=== PATIENT | female | born 1945 | race Caucasian/White ===

== ENCOUNTER 2017-05-19 09:49 | Observation (INO) | payer OTHER, MEDICARE ==
[2017-05-19 09:56] VITALS: BMI 22.6
[2017-05-19] MEDS ORDERED: PANTOPRAZOLE SODIUM 40 MG in SODIUM CHLORIDE 100 ML IVPB ONE (10:14)
[2017-05-19] MEDS ORDERED: PANTOPRAZOLE SODIUM 40 MG VIAL ONE (10:18)
[2017-05-19 10:36] LABS: BASO % 0.9 % (0-2.0); EOS % 1.1 % (0-4.5); HEMATOCRIT 39.8 % (32.4-45.2); HEMOGLOBIN 13.4 GM/dL (10.7-15.3); LYMPH % 34.4 % (8-40); MCH 28.7 pg (25.7-33.7); MCHC 33.6 g/dl (32.0-36.0); MEAN CELL VOLUME 85.4 fl (80-96); MEAN PLT VOLUME 8.3 fl (7.5-11.1); MONO % 6.4 % (3.8-10.2); NEUT % 57.2 % (42.8-82.8); PLATELET COUNT 196 K/MM3 (134-434); RBC 4.67 M/mm3 (3.60-5.2); RDW 14.2 % (11.6-15.6); WHITE BLOOD COUNT 5.2 K/mm3 (4.0-10.0)
[2017-05-19 10:38] LABS: INR 1.02 (0.82-1.09); PROTHROMBIN TIME (PATIENT) 11.5 SEC (9.98-11.88)
[2017-05-19] MEDS ORDERED: NITROGLYCERIN SUBLINGUAL 1/150 0.4 MG TAB SL ONE (10:39)
[2017-05-19 10:54] LABS: ALBUMIN 3.9 g/dl (3.4-5.0); ANION GAP 9 (8-16); BILIRUBIN,TOTAL 0.6 mg/dL (0.2-1.0); BLOOD UREA NITROGEN 17 mg/dL (7-18); CALCIUM 8.2 mg/dL (8.5-10.1); CHLORIDE 109 mmol/L (98-107); CO2 24 mmol/L (21-32); CREATININE 0.8 mg/dL (0.55-1.02); GLUCOSE,RANDOM 127 mg/dL (74-106); MAGNESIUM 2.5 mg/dL (1.8-2.4); POTASSIUM 4.1 mmol/L (3.5-5.1); SGOT/AST 20 U/L (15-37); SGPT/ALT 19 U/L (12-78); SODIUM 142 mmol/L (136-145); TOT PROT 7.4 g/dl (6.4-8.2)
[2017-05-19 10:56] LABS: ALK PHOS 107 U/L (45-117)
--- NOTE | 2017-05-19 12:21 | PDOC ---
History of Present Illness - General Chief Complaint: Chest Pain Stated Complaint: CHEST PAIN Time Seen by Provider: 05/19/17 10:07 History Source: Patient Exam Limitations: No Limitations - History of Present Illness Initial Comments: 05/19/17 11:21 71-year-old female presents the ED with midsternal/left substernal chest pressure that began last night consistently and now with intermittent left arm aching sensation since this morning. Patient states has had indigestion describing a burning sensation to epigastric region for the past 10 days with moderate relief using Maalox and Nexium. Patient states arrived from [place] this week and denies any increased exertion since arrival. Patient states has no cardiac history but did have palpitations abruptly 5 years ago where she had a stress echo that was done which was negative. Patient states has history of high cholesterol and GERD. Patient states strong familial cardiac history on her mother's side including her mother, her brother and just recently her son who of sudden cardiac arrest at age 43. Patient denies smoking or drug use. Patient denies shortness of breath, fever, chills, cough leg pain, edema, palpitations, or dizziness. Presenting Symptoms: Chest Pain Timing/Duration: reports: constant Severity/Quality: reports: moderate, pressure Location: reports: substernal Chest Pain Radiation: reports: no radiation Activities at Onset: reports: none Prior Chest Pain/Cardiac Workup: reports: Echocardiography ( 5 years ago) Nitro Today/Relief: Yes: 0.4 mg x 1, provided by ED Aspirin Received prior to arrival (Core Measure): Yes: 325 mg x 1, provided at home Beta Alessandro given by EMS (Core Measure): No Beta Alessandro taken at Home (Core Measure): No Beta Alessandro indicated at this time? (Core Measure): No Associated Symptoms: Yes: Chest Pain/pressure, Heartburn Past History - Travel Traveled outside of the country in the last 30 days: No Close contact w/someone who was outside of country & ill: No - Past Medical History Allergies/Adverse Reactions: Allergies Allergy/AdvReac Type Severity Reaction Status Date / Time alendronate sodium Allergy Severe Hives Verified 05/19/17 09:52 [From Fosamax] ciprofloxacin [From Cipro] Allergy Severe chest pain Verified 05/19/17 09:52 erythromycin base Allergy Severe Hives Verified 05/19/17 09:52 Sulfa (Sulfonamide Allergy Severe Hives Verified 05/19/17 09:52 Antibiotics) Home Medications: Ambulatory Orders Aspirin 81 mg PO HS 05/19/17 Atorvastatin Ca [Lipitor] 20 mg PO HS 05/19/17 Esomeprazole Magnesium [Nexium 24Hr] 40 mg PO HS 05/19/17 Raloxifene HCl [Evista] 60 mg PO HS 05/19/17 COPD: No GI Disorders: Yes (gerd) Hypercholesterolemia: Yes - Immunization History Immunization Up to Date: Yes - Suicide/Smoking/Psychosocial Hx Smoking History: Never smoked Substance Use Type: None Patient Lives Alone: No Lives with/in: spouse/SO Review of Systems - Review of Systems Able to Perform ROS?: Yes Constitutional: No: Symptoms Reported HEENTM: No: Symptoms Reported Respiratory: No: Symptoms reported Cardiac (ROS): Yes: Other (chest pressure) ABD/GI: Yes: Indigestion : No: Symptoms Reported Musculoskeletal: No: Symptoms Reported Integumentary: No: Symptoms Reported Neurological: No: Symptoms reported *Physical Exam - Vital Signs Last Vital Signs Temp Pulse Resp BP Pulse Ox 98.1 F 68 18 137/77 99 05/19/17 09:52 05/19/17 12:11 05/19/17 12:11 05/19/17 12:11 05/19/17 12:11 - Physical Exam General Appearance: Yes: Nourished, Appropriately Dressed. No: Apparent Distress HEENT: negative: Pale Conjunctivae Neck: positive: Normal Thyroid, Supple Respiratory/Chest: positive: Lungs Clear, Normal Breath Sounds. negative: Respiratory Distress, Accessory Muscle Use Cardiovascular: positive: Regular Rhythm, Tachycardia. negative: Murmur Gastrointestinal/Abdominal: positive: Normal Bowel Sounds, Soft. negative: Tenderness Extremity: negative: Pedal Edema Integumentary: positive: Normal Color, Warm, Moist Neurologic: positive: Motor Strength 5/5 (ambulatory) Heart Score/ECG Review - P and DC Atrial Enlargement: Left (rate 108. Sinus tachycardia. No ST elevation or depression noted) ED Treatment Course - LABORATORY CBC & Chemistry Diagram: 05/19/17 10:15 05/19/17 10:15 - ADDITIONAL ORDERS Additional order review: Laboratory Results 05/19/17 05/19/17 05/19/17 10:15 10:15 10:15 PT with INR 11.50 INR 1.02 D-Dimer 423 Sodium 142 Potassium 4.1 Chloride 109 H Carbon Dioxide 24 Anion Gap 9 BUN 17 Creatinine 0.8 Creat Clearance w eGFR > 60 Random Glucose 127 H Calcium 8.2 L Magnesium 2.5 H Total Bilirubin 0.6 AST 20 ALT 19 Alkaline Phosphatase 107 Creatine Kinase 88 Troponin I < 0.02 Total Protein 7.4 Albumin 3.9 05/19/17 10:15 RBC 4.67 MCV 85.4 MCHC 33.6 RDW 14.2 MPV 8.3 Neutrophils % 57.2 Lymphocytes % 34.4 Monocytes % 6.4 Eosinophils % 1.1 Basophils % 0.9 - RADIOLOGY Radiology Studies Ordered: Category Date Time Status CHEST X-RAY PORTABLE* [RAD] Stat Radiology 05/19/17 10:13 Completed - Medications Given in the ED: ED Medications Discontinued Medications Generic Name Dose Route Start Last Admin Trade Name Freq PRN Reason Stop Dose Admin Pantoprazole Sodium 40 mg/ 100 mls @ 200 mls/hr 05/19/17 10:14 05/19/17 10:26 Sodium Chloride IVPB 05/19/17 10:43 200 mls/hr ONCE ONE Administration Nitroglycerin 0.4 mg 05/19/17 10:39 05/19/17 10:25 Nitrostat - SL 05/19/17 10:40 0.4 mg ONCE ONE Administration Medical Decision Making - Medical Decision Making 05/19/17 11:24 Patient here with constant chest pressure to her midsternal and left sternal border since yesterday now show sheeted with intermittent left arm aching discomfort. Patient arrives sinus tachycardia complaining of chest pressure so was given 1 nitroglycerin sublingual. Differential diagnoses to include ACS, angina, esophageal spasm and PE. Patient also ordered for IV Protonix. 05/19/17 12:28 Chest x-ray shows no evidence of active pulmonary disease. Microblog was sent to hospitalist and will consult Dr. Emmanuel boat carpenter. echo ordered Laboratory Tests 05/19/17 05/19/17 05/19/17 10:15 10:15 10:15 WBC 5.2 Hgb 13.4 Hct 39.8 Plt Count 196 Neutrophils % 57.2 D-Dimer 423 Sodium 142 Potassium 4.1 Chloride 109 H Carbon Dioxide 24 Anion Gap 9 BUN 17 Creatinine 0.8 Random Glucose 127 H Calcium 8.2 L Magnesium 2.5 H Total Bilirubin 0.6 AST 20 ALT 19 Creatine Kinase 88 Troponin I < 0.02 05/19/17 12:35 Case discussed with hospitalist and requesting TSH. *DC/Admit/Observation/Transfer Diagnosis at time of Disposition: Chest pressure - Discharge Dispostion Admit: Yes - Referrals - Patient Instructions - Post Discharge Activity
--- NOTE | 2017-05-19 12:24 | EKG ---
Test Reason : Blood Pressure : / mmHG Vent. Rate : 108 BPM Atrial Rate : 108 BPM P-R Int : 140 ms QRS Dur : 094 ms QT Int : 360 ms P-R-T Axes : 046 034 058 degrees QTc Int : 482 ms SINUS TACHYCARDIA POSSIBLE LEFT ATRIAL ENLARGEMENT INCOMPLETE RIGHT BUNDLE BRANCH BLOCK BORDERLINE ECG WHEN COMPARED WITH ECG OF 26-SEP-2010 03:21, NO SIGNIFICANT CHANGE WAS FOUND Confirmed by SEBASTIEN GUTIÉRREZ, MICHELLE ([id number]) on 05/19/2017 12:23:44 PM Referred By: Confirmed By:MICHELLE CROWE MD
--- NOTE | 2017-05-19 14:55 | CON.CARD ---
Cardiology Consult (text) - Consultation Consultation Note: CC: CP 71 yo with pmhx of HL and gerd who p/w cp. + intermittent sternal chest pressure that began last night . this morning pain became associated with upper left arm aching. Was not relieved by antacids. No associated sx's. + intermittent palps (sensation of skipped or irregular heart beat) lasting 5- 10 seconds. No associated sx's. Occurring intermittently over the past week. No hx of syncope or presyncope. preceded by 10 days of worsened gerd sx's (burning sensation), but also with intermittent chest pressure similar to presenting discomfort (non-exertional). Flew back from [place] two days ago, carried her own luggage, no sx's. At baseline is active, exercises regularly with a class. Last did so on tuesday -- > no reproduction of chest pressure. In ER received SL NTG x 1 and IV protonix --> no change in sx's. Took asa 325 mg at home. Currently only mild discomfort, reproducible to palpation. no sob, orthopnea, pnd, le edema, claudication, transient neurologic sx's or dizziness. denies fever, chills, sweats, cough, congestion, n/v/d, rash, visual changes, leg pain, pmhx/pshx: per hpi social hx: former smoker, no etoh or illicits fam hx: son of sudden at age 43 (autopsy did not show infarction, but showed he had an enlarged heart with hypertrophy). mother with cabg in her 70's and brother with cabg at 50. ros: per hpi Ambulatory Orders Aspirin 81 mg PO HS 05/19/17 Atorvastatin Ca [Lipitor] 20 mg PO HS 05/19/17 Esomeprazole Magnesium [Nexium 24Hr] 40 mg PO HS 05/19/17 Raloxifene HCl [Evista] 60 mg PO HS 05/19/17 Vital Signs - 24 hr 05/19/17 05/19/17 05/19/17 09:52 10:29 10:45 Temperature 98.1 F Pulse Rate 100 H Pulse Rate [ 101 H 84 Left Apical] Respiratory 18 20 20 Rate Blood Pressure 163/99 Blood Pressure 178/75 112/57 [Right Arm] O2 Sat by Pulse 97 98 99 Oximetry (%) 05/19/17 05/19/1705/19/18 11:20 12:11 13:01 Temperature Pulse Rate Pulse Rate [ 73 68 68 Left Apical] Respiratory 20 18 20 Rate Blood Pressure Blood Pressure 124/59 137/77 147/66 [Right Arm] O2 Sat by Pulse 100 99 99 Oximetry (%) 05/19/17 14:08 Temperature Pulse Rate Pulse Rate [ Left Apical] Respiratory Rate Blood Pressure Blood Pressure [Right Arm] O2 Sat by Pulse 99 Oximetry (%) Intake & Output 05/17/17 05/18/17 05/19/17 05/20/17 07:59 07:59 07:59 07:59 Weight 140 lb nad, calm jvd flat, neck supple ctab, nl effort rrr nl s1, s2 no mrg + bs soft nt nd, no hsm ext without e/c/c + dp/pt, no carotid bruits no jaundice, diaphoresis aaox3 CBC, BMP 05/19/17 10:15 05/19/17 10:15 Laboratory Tests 05/19/17 05/19/17 05/19/17 10:15 10:15 10:15 D-Dimer 423 Magnesium 2.5 H Total Bilirubin 0.6 AST 20 ALT 19 Alkaline Phosphatase 107 Creatine Kinase 88 Troponin I < 0.02 TSH 1.33 ekg: sinus tachycardia, 108 bpm. no ischemic changes. tele: sr echo 05/2017: nl lv/rv size/fn. nl valves. cxr: no acute pathology assessment/plan 71 yo with pmhx of HL and gerd who p/w cp. cp/family hx of scd and premature cad - ce's neg x 1. con't monica. EKG without acute ischemic changes. Echo wnl - pain is atypical and reproducible to palpation. However, given family hx and risk factors will pursue further cardiac evaluation. + family hx of scd/ premature cad --> con't tele monitoring. Exercise stress test tomorrow. - start daily baby asa. con't statin. - mgm't of gerd per pmd. d-dimer neg. palpitations - tele monitoring htn? - htn on arrival, unclear if isolated in setting of pain, etc.. monitor for recurrence. hl - con't home statin
--- NOTE | 2017-05-19 15:28 | HP ---
Admitting History and Physical - Primary Care Physician PCP: Gustavo Brito - Admission Chief Complaint: chest pressure History of Present Illness: This is a 71 year old female with pmhx of GERD who presented to the ED with 2 days of intermittent chest pressure and worsening overnight into this morning with radiation to her RUE. PT states for the past 10 days her GERD has worsened and not improved with increased nexium or antacids. She has altered to a GERD diet, stopped drinking, eating chocolates, and tomatoes. She reports increased flatulance and belching. Her chest pressure feels like "something is there and wants it to go away" type discomfort. Denies burning, epigastric tenderness, n/v , abdominal pain, sob. No chest pain on exertion. + Family hx of CAD, mother Bypass surgery [place], brother bypass, [place], stents, and son + with TN at age 43 [address] Knight History Source: Patient Limitations to Obtaining History: No Limitations - Past Medical History Cardiovascular: Yes: Hyperlipdemia Gastrointestinal: Yes: GERD - Past Surgical History Past Surgical History: Yes: Hysterectomy Additional Past Surgical History: Hysterectomy 2/2 prolapsed bladder and sling in 2004 Breast bx 1991- negative - Smoking History Smoking history: Never smoked Home Medications - Allergies Allergies/Adverse Reactions: Allergies Allergy/AdvReac Type Severity Reaction Status Date / Time alendronate sodium Allergy Severe Hives Verified 05/19/17 09:52 [From Fosamax] ciprofloxacin [From Cipro] Allergy Severe chest pain Verified 05/19/17 09:52 erythromycin base Allergy Severe Hives Verified 05/19/17 09:52 Sulfa (Sulfonamide Allergy Severe Hives Verified 05/19/17 09:52 Antibiotics) - Home Medications Home Medications: Ambulatory Orders Aspirin 81 mg PO HS 05/19/17 Atorvastatin Ca [Lipitor] 20 mg PO HS 05/19/17 Esomeprazole Magnesium [Nexium 24Hr] 40 mg PO HS 05/19/17 Raloxifene HCl [Evista] 60 mg PO HS 05/19/17 Family Disease History - Family Disease History Family Disease History: CA: Mother, Brother, Son Review of Systems - Review of Systems Constitutional: reports: No Symptoms Eyes: reports: No Symptoms HENT: reports: No Symptoms Neck: reports: No Symptoms Cardiovascular: reports: Chest Pain Respiratory: reports: No Symptoms Gastrointestinal: reports: Indigestion Genitourinary: reports: No Symptoms Musculoskeletal: reports: No Symptoms Integumentary: reports: No Symptoms Neurological: reports: No Symptoms Endocrine: reports: No Symptoms Hematology/Lymphatic: reports: No Symptoms Psychiatric: reports: No Symptoms Physical Examination Vital Signs: Vital Signs Temperature 97.6 F 05/19/17 15:00 Pulse Rate 69 05/19/17 15:00 Respiratory Rate 16 05/19/17 15:00 Blood Pressure 150/75 05/19/17 15:00 O2 Sat by Pulse Oximetry (%) 99 05/19/17 14:08 Constitutional: Yes: Well Nourished Eyes: Yes: Conjunctiva Clear HENT: Yes: Atraumatic Neck: Yes: Supple Cardiovascular: Yes: Regular Rate and Rhythm, S1, S2 Respiratory: Yes: Regular, CTA Bilaterally Gastrointestinal: Yes: Normal Bowel Sounds, Soft Renal/: Yes: WNL Musculoskeletal: Yes: WNL Extremities: Yes: WNL Edema: No Peripheral Pulses WNL: Yes Neurological: Yes: Alert, Oriented, Cran Nerves II-XII Intact Labs: CBC, BMP 05/19/17 10:15 05/19/17 10:15 Imaging - Results EKG: Report Reviewed Other: Report Reviewed (ECHO 05/19: LV size function normal, rv nml, trace mr) Problem List - Problems (1) GERD (gastroesophageal reflux disease) Code(s): K21.9 - GASTRO-ESOPHAGEAL REFLUX DISEASE WITHOUT ESOPHAGITIS (2) Chest pressure Code(s): R07.89 - OTHER CHEST PAIN Assessment/Plan Assessment: 71 year old female with gerd admitted with chest pressure Plan: 1. Chest pressure - Trops x1 negative - Serial CE - ECHO noted - Defer stress test to cardiology - TSH wnl 2. GERD - Continue PPI 3. HLD - Statin - ASA 4. DVT - Lovenox sq Visit type - Emergency Visit Emergency Visit: Yes ED Registration Date: 05/19/17 Care time: The patient presented to the Emergency Department on the above date and was hospitalized for further evaluation of their emergent condition. - New Patient This patient is new to me today: Yes Date on this admission: 05/19/17 - Critical Care Critical Care patient: No Hospitalist Screening - Colonoscopy Questionnaire Colonoscopy Questionnaire: Colonoscopy Questionnaire - Patient: 50 - 75 years old and never had a screening colonoscopy: Yes History of colon or rectal polyps, or CA: No History of IBD, Crohn's disease or UC: No History of abdominal radiation therapy as a child: No - Relative: 1 with colon or rectal CA, or polyps at age 60 or younger: Unknown Colon or rectal CA diagnosed at age 45 or younger: Unknown Multiple relatives with colon or rectal CA: Unknown - Outcome: Screening Result: Positive Screen
[2017-05-19] MEDS ORDERED: ASPIRIN 81 MG CHEWABLE TABLETS PO SCH (22:00)
[2017-05-19] MEDS ORDERED: PANTOPRAZOLE 40 MG TABLET (FP) PO SCH (22:00)
[2017-05-19] MEDS ORDERED: PATIENT'S OWN MEDICATION (NON-FORMULARY) (Esomeprazole Magnesium [Nexium 24hr] 40 MG) PO SCH (22:00)
[2017-05-19] MEDS ORDERED: ATORVASTATIN CA 20 MG TABLET (FP) PO SCH (22:00)
[2017-05-20 06:52] LABS: BASO % 0.9 % (0-2.0); EOS % 1.5 % (0-4.5); HEMATOCRIT 39.7 % (32.4-45.2); HEMOGLOBIN 13.4 GM/dL (10.7-15.3); LYMPH % 32.9 % (8-40); MCH 28.8 pg (25.7-33.7); MCHC 33.7 g/dl (32.0-36.0); MEAN CELL VOLUME 85.5 fl (80-96); MEAN PLT VOLUME 8.5 fl (7.5-11.1); MONO % 7.3 % (3.8-10.2); NEUT % 57.4 % (42.8-82.8); PLATELET COUNT 186 K/MM3 (134-434); RBC 4.64 M/mm3 (3.60-5.2); RDW 14.4 % (11.6-15.6); WHITE BLOOD COUNT 5.9 K/mm3 (4.0-10.0)
[2017-05-20 07:04] LABS: CHLORIDE 108 mmol/L (98-107); POTASSIUM 4.4 mmol/L (3.5-5.1); SODIUM 140 mmol/L (136-145)
[2017-05-20 07:10] LABS: ALBUMIN 3.9 g/dl (3.4-5.0); ALK PHOS 102 U/L (45-117); ANION GAP 7 (8-16); BILIRUBIN,TOTAL 0.6 mg/dL (0.2-1.0); BLOOD UREA NITROGEN 24 mg/dL (7-18); CALCIUM 8.1 mg/dL (8.5-10.1); CO2 25 mmol/L (21-32); CREATININE 0.8 mg/dL (0.55-1.02); GLUCOSE,RANDOM 104 mg/dL (74-106); SGOT/AST 19 U/L (15-37); SGPT/ALT 19 U/L (12-78); TOT PROT 7.3 g/dl (6.4-8.2)
[2017-05-20] MEDS ORDERED: ASPIRIN 81 MG CHEWABLE TABLETS PO SCH (10:00)
[2017-05-20] MEDS ORDERED: ENOXAPARIN NA (PORCINE) 40 MG/0.4 ML DISP.SYRIN SQ SCH (10:00)
[2017-05-20 14:07] VITALS: BP 116/56; PULSE 79; TEMP 98.2
--- NOTE | 2017-05-20 16:12 | PN ---
Progress Note (short form) - Note Progress Note: CC: CP S: brief episode of CP while lying down that immediately resolved with change of position. had stress test, no recurrence of cp with exercise. no sob, palps , dizziness. Current Medications Aspirin (Asa -) 81 mg PO DAILY [facility] Last Admin: 05/20/17 13:36 Dose: 81 mg Atorvastatin Calcium (Lipitor -) 20 mg PO [facility] Last Admin: 05/19/17 21:57 Dose: 20 mg Enoxaparin Sodium (Lovenox -) 40 mg SQ DAILY [facility] Last Admin: 05/20/17 13:36 Dose: 40 mg Pantoprazole Sodium (Protonix -) 40 mg PO [facility] Last Admin: 05/19/17 21:57 Dose: 40 mg Vital Signs - 24 hr 05/19/17 05/19/17 05/19/17 17:00 19:45 20:43 Temperature 98.3 F 97.8 F Pulse Rate 72 68 Respiratory 18 18 Rate Blood Pressure 148/78 104/62 O2 Sat by Pulse 97 Oximetry (%) 05/20/17 05/20/17 05/20/17 02:00 04:00 05:48 Temperature 97.7 F 97.4 F L Pulse Rate 70 68 Respiratory 18 18 Rate Blood Pressure 124/66 120/69 O2 Sat by Pulse 97 Oximetry (%) 05/20/17 05/20/17 05/20/17 08:00 12:00 14:07 Temperature 98 F 98.2 F Pulse Rate 78 79 Respiratory 18 18 Rate Blood Pressure 128/80 116/56 O2 Sat by Pulse 98 Oximetry (%) Intake & Output 05/18/17 05/19/17 05/20/17 05/21/17 07:59 07:59 07:59 07:59 Intake Total 480 Balance 480 Weight 140 lb nad, calm jvd flat, neck supple ctab, nl effort rrr nl s1, s2 no mrg + ttp of sternum (reproduces chest discomfort) + bs soft nt nd, no hsm ext without e/c/c + dp/pt, no carotid bruits no jaundice, diaphoresis aaox3 CBC, BMP 05/20/17 06:15 05/20/17 06:15 Laboratory Tests 05/19/17 05/19/17 05/20/17 10:15 16:00 00:20 Creatine Kinase 88 79 77 Troponin I < 0.02 < 0.02 < 0.02 ekg: sinus tachycardia, 108 bpm. no ischemic changes. tele: sr/sinus tach with occasional pacs. one ventricular triplet. echo 05/2017: nl lv/rv size/fn. nl valves. cxr: no acute pathology assessment/plan 71 yo with pmhx of HL and gerd who p/w cp. cp/family hx of scd and premature cad - ce's neg x 3. EKG without acute ischemic changes. Echo wnl - pain is atypical and reproducible to palpation. However, given family hx and risk factors pursued further cardiac evaluation. Stress test with mild focal ischemia of apex (distal branch vessel disease). Ok for medical management. Low suspicion that it is the etiology of her chest discomfort, remains msk in nature. Con't asa, statin. Follow up lipid panel as outpatient. Follow up with cardiology as outpatient to assess for recurrence of sx's/need for anti- anginals or further ischemic evaluation. - start daily baby asa. con't statin. - mgm't of gerd per pmd. d-dimer neg. palpitations - tele monitoring overall benign. Can consider toprol 25 mg/day for ectopy if bothersome. Follow with cardiology as outpatient for further evaluation of palps. htn? - htn on arrival, unclear if isolated in setting of pain, etc.. No recurrence, no need for anti-htn at this time. hl - con't home statin
--- NOTE | 2017-05-20 16:40 | DS ---
Physical Exam: SUBJECTIVE: Patient seen and examined. She reports she feels better, today does note cp was more positional. Denies sob. OBJECTIVE: Vital Signs Period Temp Pulse Resp BP Sys/Titus Pulse Ox Last 24 Hr 97.4 F-98.3 F 68-79 18-18 104-148/56-80 97-98 Pe Neuro: alert, awake, cn 2-12intact Pulm: CTAB CV: s1 s2 rrr no mrg Abd: s nt nd +bs Ext: warm no le edema Laboratory Results - last 24 hr 05/19/17 05/20/17 05/20/17 16:00 00:20 06:15 WBC 5.9 RBC 4.64 Hgb 13.4 Hct 39.7 MCV 85.5 MCH 28.8 MCHC 33.7 RDW 14.4 Plt Count 186 MPV 8.5 Neutrophils % 57.4 Lymphocytes % 32.9 Monocytes % 7.3 Eosinophils % 1.5 Basophils % 0.9 Sodium Potassium Chloride Carbon Dioxide Anion Gap BUN Creatinine Creat Clearance w eGFR Random Glucose Calcium Total Bilirubin AST ALT Alkaline Phosphatase Creatine Kinase 79 77 Troponin I < 0.02 < 0.02 Total Protein Albumin 05/20/17 06:15 WBC RBC Hgb Hct MCV MCH MCHC RDW Plt Count MPV Neutrophils % Lymphocytes % Monocytes % Eosinophils % Basophils % Sodium 140 Potassium 4.4 Chloride 108 H Carbon Dioxide 25 Anion Gap 7 L BUN 24 H Creatinine 0.8 Creat Clearance w eGFR > 60 Random Glucose 104 Calcium 8.1 L Total Bilirubin 0.6 AST 19 ALT 19 Alkaline Phosphatase 102 Creatine Kinase Troponin I Total Protein 7.3 Albumin 3.9 HOSPITAL COURSE: Date of Admission:05/19/17 Date of Discharge: 05/20/17 Minutes to complete discharge: 37 Discharge Summary Reason For Visit: SENSATION OF CHEST PRESSURE Current Active Problems Chest pressure (Acute) GERD (gastroesophageal reflux disease) (Acute) Hospital Course: Initial Hospital Course: Briefly, this 71 year old female with pmhx of GERD presented to the ED with 2 days of intermittent chest pressure worsening overnight into morning with radiation to her RUE. For the past 10 days her GERD worsened and not improved with increased nexium or antacids. She changed to a GERD diet, stopped drinking , eating chocolates, and tomatoes. She reported increased flatulance and belching. Her chest pressure feels like "something is there and wants it to go away" type discomfort. + Family hx of CAD, mother Bypass surgery [place], brother bypass, [place], stents, and son + with MT at age 43 Subsequent Hospital Course/Progress Note/DC summary: Assessment: 71 year old female with GERD admitted with chest pressure Plan: 1. Chest pressure vs musculoskeletal - Started metoprolol xl 25mg daily - ECHO: nl lv/rv size/fn. nl valves. - Stress test with mild focal ischemia of apex (distal branch vessel disease) - Tele with SR/ST with pvcs - Trops x3 negative 2. GERD - Continue PPI 3. HLD - Statin - ASA Dispo: - Home with above med and plan - PT aware and agrees to above plan Condition: Stable - Instructions Diet, Activity, Other Instructions: Please return to the ED for any new, persistent, or worsening symptoms. Follow up with your PCP in 1 week Take home medications as directed Start new medication Toprol 25mg daily See cardiology in 1-2 weeks for outpt follow up Referrals: Gustavo Brito [Primary Care Provider] - Kenneth Emmanuel MD [Staff Physician] - Disposition: HOME - Home Medications Comprehensive Discharge Medication List: Ambulatory Orders Aspirin 81 mg PO HS 05/19/17 Atorvastatin Ca [Lipitor] 20 mg PO HS 05/19/17 Esomeprazole Magnesium [Nexium 24Hr] 40 mg PO HS 05/19/17 Raloxifene HCl [Evista] 60 mg PO HS 05/19/17 Metoprolol Succinate [Toprol Xl] 25 mg PO DAILY #30 tab.er.24h 05/20/17 Problem List - Problems (1) GERD (gastroesophageal reflux disease) Code(s): K21.9 - GASTRO-ESOPHAGEAL REFLUX DISEASE WITHOUT ESOPHAGITIS (2) Chest pressure Code(s): R07.89 - OTHER CHEST PAIN This patient is new to me today: No Emergency Visit: Yes ED Registration Date: 05/19/17 Care time: The patient presented to the Emergency Department on the above date and was hospitalized for further evaluation of their emergent condition. Critical Care patient: No - Discharge Referral Referred to [facility] No
== END 2017-05-20 17:09 | disposition home or self-care (01) ==
LOC: JER 09:49 → JERBED 12:36 → J4W 14:36
PROVIDERS: ADMIT Internal Medicine; ATTEND Nurse Practitioner Acute Care
PROC: 3E033GC Introduction of Other Therapeutic Substance into Peripheral Vein, Percutaneous Approach (ICD-10-PCS; principal; 2017-05-19)
PROC: 3E013GC Introduction of Other Therapeutic Substance into Subcutaneous Tissue, Percutaneous Approach (ICD-10-PCS; 2017-05-19)
DX: R07.89 Other chest pain (principal); K21.9 Gastro-esophageal reflux disease without esophagitis; E78.5 Hyperlipidemia, unspecified; R00.0 Tachycardia, unspecified; R00.2 Palpitations; Z88.2 Allergy status to sulfonamides; Z88.8 Allergy status to other drugs, medicaments and biological substances; Z79.82 Long term (current) use of aspirin; Z82.49 Family history of ischemic heart disease and other diseases of the circulatory system
CPT/HCPCS: 36415; 71045-TC-FY; 78452-TC; 80053; 82550; 83735; 84443; 84484; 85025; 85379; 85610; 93005; 93010; 93017; 93306-TC; 96365; 96372; 99285-25; A9502; C1887; G0378

== ENCOUNTER 2022-03-01 15:26 | Emergency (ER) | payer OTHER, MEDICARE ==
[2022-03-01 15:53] VITALS: BP 181/88; PULSE 79; RESP 19; TEMP 97.9; BMI 22.4
== END 2022-03-01 17:20 | disposition home or self-care (01) ==
LOC: JER 15:26
DX: I10 Essential (primary) hypertension (principal)
CPT/HCPCS: 99282-25

== ENCOUNTER 2023-09-07 09:42 | Emergency (ER) | payer OTHER, MEDICARE ==
[2023-09-07 09:59] VITALS: BP 156/74; PULSE 90; RESP 18; TEMP 98.2; BMI 22.6
[2023-09-07 11:43] LABS: INR 1.03 (0.83-1.09); PROTHROMBIN TIME (PATIENT) 11.6 SEC (9.7-13.0)
[2023-09-07 11:45] LABS: ACTIVATED PTT 29.2 SECONDS (25.2-36.5)
[2023-09-07 11:54] LABS: POTASSIUM 3.8 mmol/L (3.5-5.1)
[2023-09-07 11:56] LABS: BLOOD UREA NITROGEN 17.1 mg/dL (7-18); CALCIUM 9.2 mg/dL (8.5-10.1)
[2023-09-07 11:57] LABS: ALBUMIN 3.7 g/dl (3.4-5.0); BASO % 0.8 % (0-2.0); EOS % 1.7 % (0-4.5); HEMATOCRIT 38.2 % (32.4-45.2); HEMOGLOBIN 12.6 GM/dL (10.7-15.3); LYMPH % 32.5 % (8-40); MCH 27.2 pg (25.7-33.7); MCHC 33.1 g/dl (32.0-36.0); MEAN CELL VOLUME 82.2 fl (80-96); MEAN PLT VOLUME 8.2 fl (7.5-11.1); MONO % 7.1 % (3.8-10.2); NEUT % 57.9 % (42.8-82.8); PLATELET COUNT 206 10^3/uL (134-434); RBC 4.65 M/mm3 (3.60-5.2); RDW 14.5 % (11.6-15.6); WHITE BLOOD COUNT 4.4 K/mm3 (4.0-10.0)
[2023-09-07 12:00] LABS: CREATININE 0.8 mg/dL (0.55-1.3)
[2023-09-07 12:01] LABS: BILIRUBIN,TOTAL 0.6 mg/dL (0.2-1); TOT PROT 7.1 g/dl (6.4-8.2)
[2023-09-07 12:05] LABS: N-TERMINAL BNP 87.5 pg/ml (5-450)
== END 2023-09-07 14:18 | disposition home or self-care (01) ==
LOC: JER 09:42
DX: R00.2 Palpitations (principal)
CPT/HCPCS: 36415; 80053; 83880; 84443; 84484; 85025; 85610; 85730; 93005; 93010; 99284-25